=== PATIENT | female | born 1965 ===

== ENCOUNTER 2018-10-17 22:40 | Emergency (ER) | payer OTHER ==
[2018-10-17] MEDS ORDERED: Sodium Chloride 0.9% 1,000 ML IV STA (23:57)
[2018-10-18] MEDS ORDERED: Iohexol 240 (50 ml) PO ONE (00:36)
[2018-10-18 00:45] LABS: BASO # 0.1 K/uL (0.0-0.2); BASO % 0.4 % (0.0-2.0); EOS # 0.1 K/uL (0.0-0.7); EOS % 0.5 % (0.0-4.0); HEMOGLOBIN 13.1 g/dL (12.0-16.0); LYMPH # 2.7 K/uL (1.0-4.3); LYMPH % 18.5 % (20.0-40.0); MEAN CELL VOLUME 78.6 fl (81.0-99.0); MEAN CORPUSCULAR HEMOGLOBIN 26.4 pg (27.0-31.0); MEAN CORPUSCULAR HGB CONC 33.6 g/dL (33.0-37.0); MEAN PLATELET VOLUME 9.1 fl (7.2-11.7); MONO # 0.4 K/uL (0.0-0.8); MONO % 2.8 % (0.0-10.0); NEUT # 11.3 K/uL (1.8-7.0); NEUT % 77.8 % (50.0-75.0); NRBC % 0.1 % (0.0-0.0); RBC 4.97 Mil/uL (3.80-5.20); RED CELL DISTRIBUTION WIDTH 14.6 % (11.5-14.5); WHITE BLOOD COUNT 14.6 K/uL (4.8-10.8)
--- NOTE | 2018-10-18 00:46 | ED PDOC ---
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 denies: Fever, Chills, Diarrhea, Loss Of Appetite, Back Pain, Chest Pain, Constipation, Urinary Symptoms Exacerbating Factors: None Alleviating Factors: None Last Bowel Movement: Today Additional History Per: Patient Additional Complaint(s): 53 yo f with no pmhx howeverr does not have a dr, coming in with left sided abdominal pain for two months. today got worse. vomiting this eveneing. almost passed out from the vomiting. no diarrhea. Past Medical History Vital Signs: Last Vital Signs Temp 97.0 F L 10/17/18 22:47 Pulse 61 10/17/18 22:47 Resp 24 10/17/18 22:47 BP 153/64 H 10/17/18 22:47 Pulse Ox 100 10/17/18 22:47 - Medical History PMH: No Chronic Diseases - Surgical History Surgical History: Appendectomy - Family History Family History: States: Unknown Family Hx - Social History Current smoker - smoking cessation education provided: No Alcohol: None Drugs: Denies - Home Medications Home Medications: Ambulatory Orders Medication Instructions Recorded Ciprofloxacin HCl [Cipro] 500 mg PO BID #20 tab 10/18/18 Metronidazole [Flagyl] 500 mg PO TID #30 tablet 10/18/18 Ondansetron [Zofran] 4 mg PO Q6H PRN #5 tab 10/18/18 - Allergies Allergies/Adverse Reactions: Allergies Allergy/AdvReac Type Severity Reaction Status Date / Time No Known Allergies Allergy Verified 10/17/18 22:49 Physical Exam - Physical Exam Appears: Positive for: Well, Non-toxic, No Acute Distress Head Exam: Positive for: ATRAUMATIC, NORMAL INSPECTION, NORMOCEPHALIC Skin: Positive for: Normal Color, Warm, Dry Eye Exam: Positive for: Normal appearance ENT: Positive for: Normal ENT Inspection Neck: Positive for: Normal Cardiovascular/Chest: Positive for: Regular Rate, Rhythm Respiratory: Positive for: Normal Breath Sounds Gastrointestinal/Abdominal: Positive for: Bowel Sounds, Soft, Tenderness (diffuse) Extremity: Positive for: Normal ROM Neurological/Psych: Positive for: Awake, Alert - Laboratory Results Result Diagrams: 10/18/18 00:33 10/18/18 00:33 - ECG O2 Sat by Pulse Oximetry: 100 Medical Decision Making Medical Decision Making: abdominal pain, left sided, rule out diverticulitis versus kidney stones versus obstruction Ct abd and pelvic Anterior abdominal wall hernia of the lower aspect of the anterior abdominal wall containing nonincarcerated fat. Mild thickening of the small bowel loops in the left lower quadrant. Probably mild infectious/inflammatory pathology without perforation or abscess formation. Uncomplicated colonic diverticulosis. Benign scattered simple hepatic cysts with the largest measuring 1.2 cm. Meniscectomy. Mildly dilated extrahepatic biliary tree. Pt feels better, pt aware of CT results, tolerated po will follow up as outpt. Disposition - Clinical Impression Clinical Impression: Abdominal discomfort, Hernia - Patient ED Disposition Is Patient to be Admitted: No Counseled Patient/Family Regarding: Studies Performed, Diagnosis, Need For Followup - Disposition Referrals: [facility] [address] [Outside] [facility] [Outside] Disposition: Routine/Home Disposition Time: 07:00 Condition: IMPROVED Additional Instructions: follow up with your primary doctor in 1-2 days return to the ED with any worsening or concerning symptoms Prescriptions: Ciprofloxacin HCl [Cipro] 500 mg PO BID #20 tab Metronidazole [Flagyl] 500 mg PO TID #30 tablet Ondansetron [Zofran] 4 mg PO Q6H PRN #5 tab PRN Reason: Nausea/Vomiting Instructions: Nausea and Vomiting, Adult, Abdominal Hernia (DC) Forms: EVRYTHNG (Sao Tomean), EVRYTHNG (Moroccan) Print Language: KISWAHILI
[2018-10-18 00:59] LABS: SQUAMOUS EPITHIAL 1 /hpf (0-5); URINE BILIRUBIN NEGATIVE (NEGATIVE); URINE BLOOD MODERATE (NEGATIVE); URINE CLARITY SLIGHTY-CLOUDY (Clear); URINE COLOR YELLOW (YELLOW); URINE GLUCOSE (UA) NEG (NEGATIVE); URINE LEUKOCYTE ESTERASE NEG Leu/uL (Negative); URINE PROTEIN NEGATIVE (NEGATIVE); URINE UROBILINOGEN 0.2-1.0 mg/dL (0.2-1.0)
[2018-10-18 01:09] LABS: ALBUMIN 4.3 g/dL (3.5-5.0); ALT/SGPT 19 U/L (9-52); AST/SGOT 22 U/L (14-36); BLOOD UREA NITROGEN 17 mg/dl (7-17); CALCIUM 9.2 mg/dL (8.4-10.2); GFR NON-AFRICAN AMERICAN > 60
[2018-10-18] MEDS ORDERED: Iohexol 240 (50 ml) ONE (01:27)
[2018-10-18] MEDS ORDERED: Iohexol 300 100 ML IJ ONE (02:29)
[2018-10-18] MEDS ORDERED: Sodium Chloride 0.9% 50 ML IV ONE (02:29)
[2018-10-18 07:15] VITALS: BP 152/82; PULSE 69; RESP 18; TEMP 98.7
--- NOTE | 2018-10-18 11:36 | CT ---
Date of service: 10/18/2018 PROCEDURE: CT Abdomen and Pelvis with contrast HISTORY: abd pain rule out obstrcution, diverticulitis COMPARISON: None. TECHNIQUE: Following oral and intravenous contrast administration, a CT examination of the abdomen and pelvis was performed from the domes of the diaphragms to the symphysis pubis with reformatted datasets provided not only axial but also sagittal and coronal series. Contrast dose: Omnipaque 300, 95 cc Radiation dose: Total exam DLP = 719.5 mGy-cm. This CT exam was performed using one or more of the following dose reduction techniques: Automated exposure control, adjustment of the mA and/or kV according to patient size, and/or use of iterative reconstruction technique. FINDINGS: LOWER THORAX: Unremarkable. LIVER: There is a sub cm lucency seen at the dome of the liver toward the left small to characterize. Limited intrahepatic biliary dilatation is appreciated likely as a function of prior cholecystectomy. No gross mass identified. GALLBLADDER AND BILE DUCTS: Prior cholecystectomy. Common hepatic duct is dilated to 2.1 cm with proximal common bile duct 1.2 cm, mid segment 1.2 cm and distal portion 0.5 cm. No radiodense choledocholithiasis. PANCREAS: Unremarkable. No gross lesion or ductal dilatation. SPLEEN: Unremarkable. ADRENALS: Unremarkable. No mass. KIDNEYS AND URETERS: Unremarkable. No hydronephrosis. No solid mass. VASCULATURE: Unremarkable. No aortic aneurysm. No aortic atherosclerotic calcification or mural plaque present. BOWEL: U stomach appears unremarkable. No bowel obstruction. No gross mural thickening is appreciate throughout the large or small bowel with opacified small bowel loops unremarkable in particular. Left colonic diverticular changes are mild and nonacute. APPENDIX: Normal appendix. PERITONEUM: There is a [id number] right parasagittal ventral abdominal hernia with the neck measuring 1.3 cm and reactive change identified within the herniated fat. Trace fluid is associated as well. A small spigelian hernia has a neck of 1 cm more cephalad at the mid right flank anteriorly. No reactive changes associated. Consider possible epiploic appendagitis. No free fluid. No free air. LYMPH NODES: Unremarkable. No enlarged lymph nodes. BLADDER: Unremarkable. REPRODUCTIVE: Unremarkable. BONES: No acute fracture. OTHER FINDINGS: None. IMPRESSION: Potential epiploic appendagitis affecting herniated segment of mesentery in the right lower quadrant anterior abdominal wall. No emphysematous soft tissue change are identified. Clinically correlate further. 1.5 cm cyst immediately medial to the caudate lobe liver. Tiny lucency too small to characterize at the dome of the liver toward the left with liver otherwise reflective of intrahepatic biliary dilatation, likely a function of prior cholecystectomy. There is also post cholecystectomy related dilatation of the common bile duct without radiodense choledocholithiasis. Clinically correlate. Nonacute left colonic diverticular changes. Discordant preliminary report from [facility], 10/18/2018, 4:11 a.m.. Fluid is seen in the herniated portion of the mesentery in the right lower quadrant anterior abdominal wall with limited reaction.
[2018-10-19 18:06] VITALS: O2SAT 100
--- NOTE | 2018-10-24 14:08 | CARD ---
APPROVED REPORT Date of service: 10/17/2018 EKG Measurement Heart [id number] <Conclusion> Normal sinus rhythm Normal ECG
== END 2018-10-18 07:33 | disposition home or self-care (01) ==
LOC: H.ER 22:40
DX: R10.9 Unspecified abdominal pain (principal); K46.9 Unspecified abdominal hernia without obstruction or gangrene; K76.89 Other specified diseases of liver
CPT/HCPCS: 74177; 80053; 81003; 85025; 87086; 93005; 96361; 96374; 96375; 96376; 99283; J2270; J2405; J7030; Q9966; Q9967